=== PATIENT | female | born 1980 | race Caucasian/White ===

== ENCOUNTER 2023-11-06 14:48 | Outpatient (REF) | payer OTHER, SELFPAY ==
[2023-11-06 17:24] LABS: MANUAL DIFF FLAG NO
[2023-11-06 17:37] LABS: Basophils Absolute Auto 0.1 X10*3/uL (0.0-0.2); Basophils Percent Auto 0.9 % (0-2); Eosinophils Absolute Auto 0.3 X10*3/uL (0.0-0.4); Hematocrit 37.8 % (37.0-47.0); Hemoglobin 12.4 g/dl (12.0-16.0); Imm Gran Abs Auto 0.03 X10*3/uL (0.00-0.03); Imm Gran Pct Auto 0.3 % (0.0-0.4); Lymphocytes Absolute Auto 2.5 X10*3/uL (1.2-4.9); Mean Corpuscular HGB Conc 32.8 g/dl (31.0-35.0); Mean Corpuscular Hemoglobin 28.2 pg (27.0-33.0); Mean Corpuscular Volume 86.1 fL (80.0-98.0); Monocytes Absolute Auto 0.7 X10*3/uL (0.1-1.2); Monocytes Percent Auto 8.5 % (2-11); Neutrophils Absolute Auto 5.1 x10*3/uL (2.0-8.3); Neutrophils Percent Auto 58.3 % (45-73); Platelet Count 304 X10*3/uL (160-400); Red Blood Count 4.39 X10*6/uL (4.20-5.50); Red Cell Distribution Width 14.4 % (11.0-16.0); White Blood Count 8.7 X10*3/uL (4.8-10.8)
[2023-11-06 17:50] LABS: Alanine Aminotransferase 18 U/L (0-31); Albumin Level 3.8 g/dL (3.5-5.0); Alkaline Phosphatase 99 U/L (39-117); Anion Gap 11 (12-20); Aspartate Amino Transferase 18 U/L (5-31); Bilirubin Direct 0.1 mg/dL (0.0-0.5); Bilirubin Total 0.5 mg/dL (0.0-1.0); Blood Urea Nitrogen 8 mg/dL (9-16); Calcium 9.2 mg/dL (8.4-10.2); Carbon Dioxide 27 mmol/L (22-29); Chloride 107 mmol/L (96-108); Cholesterol 178 mg/dL (<200); Estimated Glomerular Filt Rate > 60; Glucose Fasting 80 mg/dL (60-99); HDL Cholesterol 30 mg/dL (>40); LDL Cholesterol Calculated 112 mg/dL (<100); Potassium 3.7 mmol/L (3.3-5.1); Sodium 141 mmol/L (135-145); Triglycerides 184 mg/dL (<150)
[2023-11-06 17:56] LABS: Estimated Average Glucose 103 mg/dL; Hemoglobin A1c % 5.2 % (<6.0)
[2023-11-06 18:06] LABS: TSH reflex Free T4 2.45 uIU/mL (0.32-4.0); Vitamin D 25-OH Total 13.9 ng/mL (>30)
== END 2023-11-06 14:49 | disposition home or self-care (01) ==
LOC: HO.CHCLDS 14:48
PROVIDERS: Visit Provider Pediatrics
DX: F41.9 Anxiety disorder, unspecified (principal); E66.01 Morbid (severe) obesity due to excess calories
CPT/HCPCS: 36415; 80048; 80061; 80076; 82306; 83036; 84443; 85025

== ENCOUNTER → 2023-11-19 12:00 | Outpatient (BNV) | payer OTHER, SELFPAY | PROVIDERS: PCP Pediatrics; Visit Provider Radiology Diagnostic Radiology | DX: Z12.31 Encounter for screening mammogram for malignant neoplasm of breast (principal) | CPT/HCPCS: 77063; 77067 ==

== ENCOUNTER 2023-11-19 12:06 | Outpatient (REF) | payer OTHER, SELFPAY ==
--- NOTE | ~2023-11-19 | MM_ITS ---
EXAMINATION: MM SCREENING DIGITAL BREAST TOMOSYNTHESIS, BILATERAL CLINICAL INFORMATION: Screening. Asymptomatic. COMPARISON: Mammography: This is a baseline mammogram. TECHNIQUE: Digital breast tomosynthesis is performed in both the craniocaudal and mediolateral oblique views along with computer-aided detection (CAD). Synthesized 2D images are generated from the tomosynthesis. FINDINGS: The breasts are heterogeneously dense, which may obscure small masses (ACR BI-RADS breast composition Category c). There are no significant masses, abnormal calcifications, or other abnormalities. MM/MM tomosynthesis screening BI IMPRESSION: No mammographic evidence of malignancy. ASSESSMENT: BI-RADS BI-RADS 1 - Negative RECOMMENDATION: Routine annual mammography screening. 1 year F/U This examination should not preclude the clinical evaluation of a suspicious palpable abnormality. This patient's information was entered into a reminder system with a target due date for their next mammogram.
== END 2023-11-19 12:07 | disposition home or self-care (01) ==
LOC: HO.MAMMO 12:06
PROVIDERS: PCP Pediatrics; Visit Provider Pediatrics
DX: Z12.31 Encounter for screening mammogram for malignant neoplasm of breast (principal)
CPT/HCPCS: 77063; 77067

== ENCOUNTER 2023-11-20 13:23 | Outpatient (REF) | payer OTHER, SELFPAY ==
[2023-11-20 16:18] LABS: CT PCR NOT DETECTED (Not Detect.); NG PCR NOT DETECTED (Not Detect.)
[2023-11-21 12:20] LABS: BV Int Neg Control Negative (Negative); BV Int Pos Control Positive (Positive)
== END 2023-11-20 13:24 | disposition home or self-care (01) ==
LOC: HO.CHCLNP 13:23
PROVIDERS: Visit Provider Pediatrics
DX: Z01.419 Encounter for gynecological examination (general) (routine) without abnormal findings (principal); Z11.3 Encounter for screening for infections with a predominantly sexual mode of transmission
CPT/HCPCS: 0353U; 87480; 87510; 87660; 88142

== ENCOUNTER 2025-03-10 09:17 | Outpatient (REF) | payer MEDICAID, SELFPAY ==
--- NOTE | ~2025-03-10 | MM_ITS ---
EXAMINATION: MM SCREENING DIGITAL BREAST TOMOSYNTHESIS, BILATERAL CLINICAL INFORMATION: Screening. Asymptomatic. COMPARISON: November 19, 2023 TECHNIQUE: Digital breast tomosynthesis is performed in both the craniocaudal and mediolateral oblique views along with computer-aided detection (CAD). FINDINGS: BREAST COMPOSITION: The breasts are heterogeneously dense, which may obscure small masses (ACR BI-RADS breast composition Category c). BILATERAL BREASTS: No significant masses, suspicious calcifications or other abnormalities are seen in either breast. MM/MM tomosynthesis screening BI IMPRESSION: BILATERAL BREASTS: Negative, no mammographic evidence of malignancy. Normal interval follow-up is recommended in 12 months. ASSESSMENT: BI-RADS 1 - Negative RECOMMENDATION: Routine annual mammography screening. FOLLOW-UP: 1 year F/U This examination should not preclude the clinical evaluation of a suspicious palpable abnormality. This patient's information was entered into a reminder system with a target due date for their next mammogram. Electronically signed by: Shirley Sy MD 03/19/2025 09:56 PM EDT
--- OUTSIDE RECORDS SUMMARY | 2025-03-10 09:41 | XMS_ITS | Encounter Summary ---
Author Organization [employer] Address [address] [place] [address] [address] [place] [address] Care Team Providers Care Video Production Intern Name Role Phone Ange Shelton MD Primary Care Provider [phone] Reason for Visit * Reason Onset Date Comments Appointment Request 09/01/2023 Encounter Details Date Type Department Care Team (Late Contact Info) Description 09/01/2023 Telephone [facility] PEDS [address] [place], [place] [phone] Ange Shelton MD [address] [place], [place] [phone] Appointment Request Social History Tobacco Use Types Packs/Day Years Used Date Smoking Tobacco: Never Assessed Comments Unknown Sex and Gender Information Value Date Recorded Sex Assigned at Female 06/03/2022 10:14 AM EDT Legal Sex Female 10:14 AM EDT Gender Identity Female 06/03/2022 10:14 AM EDT Sexual Orientation Straight 06/03/2022 10 :14 AM EDT documented as of this encounter Miscellaneous Notes * Telephone Encounter - Sophie Molina - 09/01/2023 3:15 PM EST Tc from pt requesting an PE appt with PCP . Please contact pt @ [phone] documented in this encounter Plan of Treatment Upcoming Encounters Date Type Department Care Team (Late Contact Info) Description 04/14/2025 2:15 PM EDT Office Visit [facility] PEDS [address] [place], [place] [phone] Ange Shelton MD [address] [place] [address] documented as of this encounter Visit Diagnoses Not on filedocumented in this encounter Care Teams Video Production Intern Relationship Specialty Start Date End Date Ange Shelton MD [address] [place] [address] PCP - General Family Medicine 10/07/18 documented as of this encounter
== END 2025-03-10 09:18 | disposition home or self-care (01) ==
LOC: HO.MAMMO 09:17
PROVIDERS: PCP Pediatrics; Visit Provider Pediatrics
DX: Z12.31 Encounter for screening mammogram for malignant neoplasm of breast (principal)
CPT/HCPCS: 77063; 77067

== ENCOUNTER → 2025-03-10 09:30 | Outpatient (BNV) | payer MEDICAID, SELFPAY | PROVIDERS: PCP Pediatrics; Visit Provider Radiology Body Imaging | DX: Z12.31 Encounter for screening mammogram for malignant neoplasm of breast (principal) | CPT/HCPCS: 77063; 77067 ==

== ENCOUNTER 2025-04-22 08:30 | Outpatient (REF) | payer MEDICAID, SELFPAY ==
--- OUTSIDE RECORDS SUMMARY | 2025-04-22 09:05 | XMS_ITS | Encounter Summary ---
Author Organization [employer] Address [address] [facility] 7t [place] [address] Care Team Providers Care Friction Saw Operator Name Role Phone Ange Shelton MD Primary Care Provider [phone] Encounter Details Date Type Department Care Team (Late st Contact Info) Description 12/01/2023 Telephone [facility] [address] [place] [address] Ange Shelton MD [address] [place] [address] Social History Tobacco Use Types Packs/Day Years Used Date Smoking Tobacco: Never Smokeless Tobacco: Never Depression Answer Date Recorded Patient Health Questionnaire-9 Score 19 11/06/2023 Patient Health Questionnaire-9 Score 19 11/06/2023 Last PHQ-9: Questionnaire Data Not on file 0 11/06/2023 Housing Stability Answer Date Recorded What is your housing situation today? I have chucky aparicio 11/06/[address] you li ve. Do you have problems with any of the following? None of the above 11/06/2023 Food Insecurity Answer Date Recorded Within the past 12 months, y ou worried that your food would run out before you got money to buy more: Never True 11/06/2023 Within the past 12 months,th e food you bought just didn't last and you didn't have enough money to get more: Never True 11/2023 Transportation Answer Date Recorded In the past 12 months, has l ack of transportation kept you from medical appts, meetings, work or from getting things needed for daily living? No 11/06/2023 Utilities Answer Date Recorded In the past 12 months, has t he electric, gas, oil or water company threatened to shut off services in your home? No 11/06/2023 Depression Answer Date Recorded Patient Health Questionnaire-2 Score 6 11/06/2023 Comments Unknown Sex and Gender Information Value Date Recorded Sex Assigned at Female 06/03/2022 10:14 AM EDT Legal Sex Female 10:14 AM EDT Gender Identity Female 06/03/2022 10:14 AM EDT Sexual Orientation Straight 06/03/2022 10 :14 AM EDT documented as of this encounter Plan of Treatment Upcoming Encounters Date Type Department Care Team (Late st Contact Info) Description 06/15/2025 9:30 AM EST Office Visit [facility] MED & PEDS [address] [place] [address] Ange Shelton MD [address] [place] [address] documented as of this encounter Visit Diagnoses Not on filedocumented in this encounter Additional Health Concerns Assessment Noted Time PHQ-9 Depression Total Score: 19 024 1:33 PM EDT documented as of this encounter Care Teams Friction Saw Operator Relationship Specialty Start Date End Date Ange Shelton MD [address] [place] [address] PCP - General Family Medicine 10/07/18 documented as of this encounter
--- OUTSIDE RECORDS SUMMARY | 2025-04-22 09:05 | XMS_ITS | Encounter Summary ---
Author Organization [employer] Address [address] [place] [address] 7 [place] [address] Care Team Providers Care Chain Builder Name Role Phone Ange Shelton MD Primary Care Provider [phone] Reason for Visit * Reason Onset Date Comments Appointment Request 09/01/2023 Encounter Details Date Type Department Care Team (Late Contact Info) Description 09/01/2023 Telephone [facility] MED & PEDS [address] [place], [place] [phone] Ange Shelton MD [address] [place], [place] [phone] Appointment Request Social History Tobacco Use Types [...] with PCP . Please contact pt @ [phone] documented in this encounter Plan of Treatment Upcoming Encounters Date Type Department Care Team (Late st Contact Info) Description 06/15/2025 9:30 AM EST Office Visit [facility] MED & PEDS [address] [place], [place] [phone] Ange Shelton MD [address] [place] [address] documented as of this encounter Visit Diagnoses Not on filedocumented in this encounter Care Teams Chain Builder Relationship Specialty Start Date End Date Ange Shelton MD [address] [facility] [place] [address] PCP - General Family Medicine 10/07/18 documented as of this encounter
--- OUTSIDE RECORDS SUMMARY | 2025-04-22 09:06 | XMS_ITS | Clinical Summary ---
Author Organization [employer] Address [address] [facility] 7[address] [place] [address] Care Team Providers Care Snack Stewardess Name Role Phone Ange Shelton MD Primary Care Provider [phone] Allergies No known active allergies Medications * This document contains information received from the source organization and may not represent a complete record from that organization. naproxen (Naprosyn) 500 MG tablet Take 1 tablet by mouth in the morning and 1 tablet in the evening. Active phentermine 8 MG tablet Take 1 tablet (8 mg) by mouth Once per day. 30 tablet 5 Active topiramate (Topamax) 50 MG tablet Take 1 tablet (50 mg) by mouth Once per day. 30 tablet 2 5 Active ergocalciferol (Vitamin D2) 1.25 MG (69966 UT) capsule Take 1 capsule by mouth 1 (one) time per week. 2 04/15/20 25 Discontinu ed(Therapy completed) ergocalciferol (Vitamin D2) 1.25 MG (96524 UT) capsule Take 1 capsule (1.25 mg) by mouth 1 (one) time per week. 15 capsule 4 04/15/20 25 Discontinu ed(Therapy completed) sertraline (Zoloft) 50 MG tablet TAKE 1 TABLET BY MOUTH DAILY 30 tablet 3 4 04/15/20 25 Discontinu ed(Therapy completed) Active Problems Problem Noted Date Diagnosed Date Moderate episode of recurrent major depressive d isorder 11/11/2023 History of cholecystectomy 08/07/2022 Obesity 08/07/2022 Panic disorder 08/07/2022 Premenstrual tension syndrome 08/07/2022 Chronic anxiety 09/10/2018 Encounters * This document contains information received from the source organization and may not represent a complete record from that organization. Date Type Department Care Team Description 04/14/2025 2:15 PM EDT Office Visit [facility] MED & PEDS [address] [place] [address] Ange Shelton MD Chronic anxiety (Primary Dx); Dietary counseling; Exercise counseling; Myopia of both eyes; Routine general medical examination at a health care facility; Class 2 obesity with body mass index (BMI) of 38.0 to 38.9 in adult, unspecified obesity type, unspecified whether serious comorbidity present 04/14/2025 Travel 04/12/2025 Telephone [facility] & PEDS [address] [place] [address] Ange Shelton MD Chart Prep 04/07/2025 Patient Outreach [facility] [address] [place] [address] Ange Shelton MD Pre-visit Planning (Pre visit planning LVM ) 04/06/2025 Population Health Risk Score [facility] () Department [address] [place] [phone] Provider, Population Health Generic 03/10/2025 Orders Only [facility] MED & PEDS [address] [place] [address] Ange Shelton MD from Last 3 Months Immunizations Immunization Administration Dates Next Due Hep B Immune Globulin 04/13/2009,11/07/2008,0311/2008 Hep B, adult 04/13/2009,11/07/2008,10/05/2008 Influenza injectable quadriv alent preservative free 05/30/2023,05/31/2022,06/19/2021,2019 Influenza, IIV3, injectable 04/09/2013, 2,04/25/2011 Influenza, intradermal, quad rivalent, preservative free 04/09/2013,03/09/2012,04/25/2011 Social History Tobacco Use Types Packs/Day Years Used Date Smoking Tobacco: Never Passive Smoke Exposure: Never Smokeless Tobacco: Never Tobacco Cessation:Counseling Given: Not Answered Depression Answer Date Recorded Patient Health Questionnaire-9 Score 7 04/14/2025 Patient Health Questionnaire-9 Score 7 04/14/2025 Last PHQ-9: Questionnaire Data Not on file 0 04/14/2025 Housing Stability Answer Date Recorded What is your housing situation today? I have chucky aparicio 04/14/[address] you li ve. Do you have problems with any of the following? None of the above 04/14/2025 Food Insecurity Answer Date Recorded Within the past 12 months, y ou worried that your food would run out before you got money to buy more: Never True 04/14/2025 Within the past 12 months,th e food you bought just didn't last and you didn't have enough money to get more: Never True 06/2025 Transportation Answer Date Recorded In the past 12 months, has l ack of transportation kept you from medical appts, meetings, work or from getting things needed for daily living? No 04/14/2025 Utilities Answer Date Recorded In the past 12 months, has t he electric, gas, oil or water company threatened to shut off services in your home? No 04/14/2025 Depression Answer Date Recorded Patient Health Questionnaire-2 Score 2 04/14/2025 Internet Access Answer Date Recorded Internet Access Q1 Yes 04/14/2025 Internet Access Q2 Not on file 04/14/2025 Comments Unknown Sex and Gender Information Value Date Recorded Sex Assigned at Female 06/03/2022 10:14 AM EDT Legal Sex Female 10:14 AM EDT Gender Identity Female 06/03/2022 10:14 AM EDT Sexual Orientation Straight 06/03/2022 10 :14 AM EDT Last Filed Vital Signs Vital Sign Reading Time Taken Comments Blood Pressure 120/90 04/14/2025 2:32 PM EDT Pulse 80 04/14/2025 2:32 PM EDT Temperature 36.6 C (97.8 F) 04/14/2025 2:32 PM EDT Respiratory Rate 20 04/14/2025 2:32 PM EDT Oxygen Saturation 97% 11/06/2023 1:30 PM EDT Inhaled Oxygen Concentration - - Weight 103 kg (227 lb) 04/14/2025 2:32 PM EDT Height 163.2 cm (5' 4.25 ) 04/14/2025 2:32 PM ED T Body Mass Index 38.66 04/14/2025 2:32 PM EDT Plan of Treatment Upcoming Encounters Date Type Department Care Team ([facility] st Contact Info) Description 06/15/2025 9:30 AM EST Office Visit [facility] & PEDS [address] [facility] [place] [address] Ange Shelton MD [address] [place] [address] Health Maintenance Due Date Last Done Comments HIV Screening 1980 Family Planning (PISQ) 1996 HPV Vaccines (1 - 3-dose series) 1996 Hepatitis C Screening 1999 DTaP/Tdap/Td Vaccines (1 - Tdap) 2000 COVID-19 Vaccine ( season) 2025 04/25/2021, 04/04/2021 Influenza Vaccine (#1) 2025 , 05/31/2022, 06/19/2021, Additional history exists Alcohol/Substance Use Screening 04/14/2026 04/14/2025 Depression Screening 04/14/2026 04/14/2025, 04/14/20 25 Disability Screening 04/14/2026 04/14/2025 SDOH Screening 04/14/2026 04/14/2025 Tobacco Screening 04/14/2026 04/14/2025 Pap Smear 11/19/2026 11/20/2023, 11/02, 01/29/2017 Mammogram 03/10/2027 03/10/2025, 11/19/2023 Lipid Panel 11/05/2028 11/06/2023, 09/13/2021 Cervical Cancer Screening 11/19/2028 HPV/Cotest 11/19/2028 11/20/2023, 01/29/2017 Zoster Vaccines (1 of 2) 2031 RSV Patients and Patients Aged 60 years or older (1 - 1-dose 75+ series) 2056 Hepatitis B Vaccines Completed 04/13/2009, 11/07/2008, 10/05/2008 HIB Vaccines Aged Out No longer eligi ble based on patient's age to complete this topic Hepatitis A Vaccines Aged Out No long er eligible based on patient's age to complete this topic IPV Vaccines Aged Out No longer eligi ble based on patient's age to complete this topic Meningococcal B Vaccine Aged Out No l onger eligible based on patient's age to complete this topic Meningococcal Vaccine Aged Out No bang shobha eligible based on patient's age to complete this topic Pneumococcal Vaccine: Pediatrics (0 to 5 Years) and At-Risk Patients (6 to 49) Years Aged Out No longer eligible based on patient's age to complete this topic RSV under 20 months Aged Out No longe r eligible based on patient's age to complete this topic Rotavirus Vaccines Aged Out No longer eligible based on patient's age to complete this topic Procedures Procedure Name Priority Date/Time Associated Diagnosis Comments BI MAMMOGRAM SCREENING TOMOSYNTHESIS BILATERAL Routine 03/10/2025 9:25 AM EDT PAP SMEAR Routine 11/20/2023 12:30 PM EDT Combined hyperlipidemia Vitamin D deficiency Encounter for gynecological examination with Papanicolaou smear of cervix HM PAP/HPV Routine 11/20/2023 LIPID PANEL, STANDARD Routine 11/06/2023 3:06 PM EDT Chronic anxiety Class 3 severe obesity due to excess calories in adult, unspecified BMI, unspecified whether serious comorbidity present (CMS/HCC) from Last 3 Months or Most Recently Relevant to Health Maintenance Results * BI Mammogram Screening Tomosynthesis Bilateral (03/10/2025 9:25 AM EDT) Anatomical Region Laterality Modality Breast Bilateral Mammography 03/10/2025 9:25 AM EDT Narrative 03/19/2025 9:59 PM EDT [facility] [address] [place] [address] Mammography Report Signed Patient: Colleen Tatum MR#: [id number] : 1980 Acct:[id number] Age/Sex: 44 / F ADM Date: 03/10/25 Loc: HO.MAMMO Attending Dr: Ange Shelton MD Ordering Physician: Ange Shelton MD Results: 1Ne gative Date of Service: 03/10/25 Follow Up: 1 Year From Orig [facility] Mammogram Procedure(s): MM tomosynthesis screening BI Accession Number(s): [id number] cc: Ange Shelton MD EXAMINATION: MM SCREENING DIGITAL BREAST TOMOSYNTHESIS, BILATERAL CLINICAL INFORMATION: Screening. Asymptomatic. COMPARISON: November 19, 2023 TECHNIQUE: Digital breast tomosynthesis is performed in both the craniocaudal and mediolateral oblique views along with computer-aided detection (CAD). FINDINGS: BREAST COMPOSITION: The breasts are heterogeneously dense, which may obscure small masses (ACR BI-RADS breast composition Category c). BILATERAL BREASTS: No significant masses, suspicious calcifications or other abnormalities are seen in either breast. MM/MM tomosynthesis screening BI IMPRESSION: BILATERAL BREASTS: Negative, no mammographic evidence of malignancy. Normal interval follow-up is recommended in 12 months. ASSESSMENT: BI-RADS 1 - Negative RECOMMENDATION: Routine annual mammography screening. FOLLOW-UP: 1 year F/U This examination should not preclude the clinical evaluation of a suspicious palpable abnormality. This patient's information was entered into a reminder system with a target due date for their next mammogram. Electronically signed by: Shirley Sy MD 03/19/2025 09:56 PM EDT Dictated By: Shirley Sy MD Signed By: <Electronically signed by Shirley Sy MD in OV> 03/19/256 DD/ 4 TD/TT: 03/10/25 09 Music Intern: Procedure Note Donotuseinterpreter, Image - 03/19/2025 [facility] [address] [place] [address] Mammography Report Signed Patient: Colleen Tatum JMR#: [id number] : 1980Acct:[id number] Age/Sex: 44 / FADM Date: 03/10/25 Loc: [facility]MO Attending Dr: Ange Shelton MD Ordering Physician: Ange Shelton MDResults: 1Ne gative Date of Service: 03/10/25Follow Up: 1 Year From [facility] Mammogram Procedure(s): MM tomosynthesis screening BI Accession Number(s): [id number] cc: Ange Shelton MD EXAMINATION: MM SCREENING DIGITAL BREAST TOMOSYNTHESIS, BILATERAL CLINICAL INFORMATION: Screening. Asymptomatic. COMPARISON: November 19, 2023 TECHNIQUE: Digital breast tomosynthesis is performed in both the craniocaudal and mediolateral oblique views along with computer-aided detection (CAD). FINDINGS: BREAST COMPOSITION: The breasts are heterogeneously dense, which may obscure small masses (ACR BI-RADS breast composition Category c). BILATERAL BREASTS: No significant masses, suspicious calcifications or other abnormalities are seen in either breast. MM/MM tomosynthesis screening BI IMPRESSION: BILATERAL BREASTS: Negative, no mammographic evidence of malignancy. Normal interval follow-up is recommended in 12 months. ASSESSMENT: BI-RADS 1 - Negative RECOMMENDATION: Routine annual mammography screening. FOLLOW-UP: 1 year F/U This examination should not preclude the clinical evaluation of a suspicious palpable abnormality. This patient's information was entered into a reminder system with a target due date for their next mammogram. Electronically signed by: Shirley yS MD 03/19/2025 09:56 PM EDT Dictated By: Shirley Sy MD Signed By: <Electronically signed by Shirley Sy MD in OV> 03/19/25 2156 DD/ 0925 TD/TT: 03/10/25 0940 Music Intern: us Ange Shelton MD IMG BI PROCEDURES Final Resul t * Pap Smear (11/20/2023 12:30 PM EDT) Swab 11/20/2023 12:3 0 PM EDT 11/24/2023 11:30 AM EDT [facility] - 12/09/2023 12:30 PM EDT ----- ------- Name: Colleen Tatum Age/Sex: 43/F : 1980 Unit#: [id number] Attend Dr: Ange Shelton MD Re11/20/23 Status: DEP REF Location: HO.CHCLNP Disch: ----- ------- SPEC : [id number] RECD: 11/24/23-113 STATUS: ESTELLE PISANO NUM: [id number] ALICIA: 11/20/23-[address] [facility] [address]: Ange Shelton MD ENTERED: 11/24/23-1410 SP TYPE: Pap Smr OT DR: ORDERED: Pap Smear Interpretation Satisfactory for evaluation. Negative for intraepithelial lesion or malignancy. Clinical Information LMP: Unknown date Previous PAP test: 2016, WN Material Received ThinPrep-Cervical ----- ------- Signed (signature on file) ARVIND Irizarry (ASCP) 12/09/23 1230 ----- ------- END OF REPORT Ange Shelton MD LAB CYTOLOGY ORDERABLES Final Result [facility] [address] [place] [address] [phone] * HM PAP/HPV (11/20/2023) Pap Smear 1. NILM 1. NILM HPV Undetected Undetected, Indeterminate , Quantitative, Not Detected Ange Shelton MD HEALTH MAINTENANCE Final Resu lt * (ABNORMAL) Lipid Panel, Standard (11/06/2023 3:06 PM EDT) Triglycerides 184(H) <150 mg/dL [facility] Comment:Desirable Triglyceri de: less than 150 mg/dLBorderline High Triglyceride 150-199 mg/dLHigh Triglyceride: 200-499 mg/dLVery High Triglyceride: greater than or equal to 5OO mg/dL Cholesterol 178 <200 mg/dL [facility] Comment:Desirable Cholestero l: less than 200 mg/dLBorderline High Cholesterol: 200-239 mg/dLHigh Cholesterol: greater than 239 mg/dL LDL Cholesterol Calculated 112(H) <100 mg/dL [facility] Comment:Desirable LDL: less than 100 mg/dLNear Optimal/Above Optimal LDL: 110- 129 mg/dLBorderline High LDL: 130-159 mg/dLHigh LDL: 160-189 mg/dLVery High LDL: greater than or equal to 190 mg/dL HDL Cholesterol 30(L) >40 mg/dL [facility] Comment:Desirable HDL: great er than 40 mg/dL Note: This HDL assay may give artificially low results in patients with liver disease. Blood Venous blood specimen / Unknown 11/06/2023 3:06 PM EDT 11/06/2023 5:19 PM EDT Ange Shelton MD LAB BLOOD ORDERABLES Final Re sult [facility] [address] [place] [address] [phone] from Last 3 Months or Most Recently Relevant to Health Maintenance Insurance [employer] Care Teams Snack Stewardess Relationship Specialty Start Date End Date Ange Shelton MD [address] [place] [address] PCP - General Family Medicine 10/07/18
--- OUTSIDE RECORDS SUMMARY | 2025-04-22 09:06 | XMS_ITS | Encounter Summary ---
Author Organization [employer] Address [address] [facility] 7t [place] [address] Care Team Providers Care Records Management Coordinator Name Role Phone Ange Shelton MD Primary Care Provider [phone] Reason for Visit * Reason Comments Med Refill Encounter Details Date Type Department Care Team ([facility] st Contact Info) Description 03/25/2024 Refill [facility] [address] [place], [place] [phone] Ange Shelton MD [address] [place] [address] Social History Tobacco Use Types Packs/Day Years [...] Upcoming Encounters Date Type Department Care Team ([facility] st Contact Info) Description 06/15/2025 9:30 AM EST Office Visit [facility] MED & PEDS [address] [place] [address] Ange Shelton MD [address] [place] [address] documented as of this encounter Visit Diagnoses Not on filedocumented in this encounter Additional Health Concerns Assessment Noted Time PHQ-9 Depression Total Score: 19 024 1:33 PM EDT documented as of this encounter Care Teams Records Management Coordinator Relationship Specialty Start Date End Date Ange Shelton MD [address] [place] [address] PCP - General Family Medicine 10/07/18 documented as of this encounter
--- OUTSIDE RECORDS SUMMARY | 2025-04-22 09:06 | XMS_ITS | Encounter Summary ---
Author Organization [employer] Address [address] [place] [address] Care Team Providers Care Senior Account Representative Name Role Phone Ange Shelton MD Primary Care Provider [phone] Reason for Visit * Reason Comments Med Refill Encounter Details Date Type Department Care Team ([facility] st Contact Info) Description 03/24/2024 Refill [facility] [address], [place] [id number] Ange Shelton MD [address] [place] [address] Social History Tobacco Use Types Packs/Day Years [...] Upcoming Encounters Date Type Department Care Team ([facility] st Contact Info) Description 06/15/2025 9:30 AM EST Office Visit [facility] [address] [place] [address] Ange Shelton MD [address] [place] [address] documented as of this encounter Visit Diagnoses Not on filedocumented in this encounter Additional Health Concerns Assessment Noted Time PHQ-9 Depression Total Score: 19 024 1:33 PM EDT documented as of this encounter Care Teams Senior Account Representative Relationship Specialty Start Date End Date Ange Shelton MD [address] [place] [address] PCP - General Family Medicine 10/07/18 documented as of this encounter
[2025-04-22 14:36] LABS: MANUAL DIFF FLAG NO
[2025-04-22 14:49] LABS: Hematocrit 37.4 % (37.0-47.0); Hemoglobin 12.5 g/dl (12.0-16.0); Imm Gran Abs Auto 0.03 X10*3/uL (0.00-0.03); Imm Gran Pct Auto 0.3 % (0.0-0.4); Lymphocytes Absolute Auto 2.5 X10*3/uL (1.2-4.9); Mean Corpuscular HGB Conc 33.4 g/dl (31.0-35.0); Mean Corpuscular Hemoglobin 28.1 pg (27.0-33.0); Mean Corpuscular Volume 84.0 fL (80.0-98.0); NRBC Abs Auto 0.000 X10*3/uL (0.0-0.012); NRBC Pct Auto 0.0 /100WBC (0.0-0.2); Platelet Count 316 X10*3/uL (160-400); Red Blood Count 4.45 X10*6/uL (4.20-5.50); White Blood Count 9.4 X10*3/uL (4.8-10.8)
[2025-04-22 15:00] LABS: Hemoglobin A1C 121.1975 umol/L; Total Hemoglobin (HGBA1C) 3250.2639 umol/L
[2025-04-22 15:02] LABS: Alanine Aminotransferase 18 U/L (0-31); Albumin Level 4.0 g/dL (3.5-5.0); Alkaline Phosphatase 99 U/L (39-117); Anion Gap 10 (12-20); Aspartate Amino Transferase 25 U/L (5-31); Blood Urea Nitrogen 12 mg/dL (9-16); Calcium 8.8 mg/dL (8.4-10.2); Carbon Dioxide 27 mmol/L (22-29); Chloride 108 mmol/L (96-108); Cholesterol 162 mg/dL (<200); Estimated Glomerular Filt Rate > 60; HDL Cholesterol 30 mg/dL (>40); Potassium 3.5 mmol/L (3.3-5.1); Sodium 141 mmol/L (135-145); Total Protein 6.8 g/dL (6.5-8.0); Triglycerides 167 mg/dL (<150)
[2025-04-22 15:45] LABS: Folate 5.2 ng/mL (> or = 4.0); Vitamin B12 280 pg/mL (200-900)
[2025-04-22 16:05] LABS: Free T4 (Free Thyroxine) 0.96 ng/dL (0.71-1.85)
[2025-04-22 21:56] LABS: CT PCR Urine NOT DETECTED (Not Detect.); NG PCR Urine NOT DETECTED (Not Detect.)
[2025-04-23 08:44] LABS: Syphilis Screen Nonreactive (Nonreactive)
[2025-04-23 08:50] LABS: HBS Num1 149.46 mIU/mL (0-7.99); HIV Num 1 0.06 S/CO (0.00-0.99); ~HepC Num1 0.15 S/CO (0.00-0.79); ~Hepatitis B Surface Antibody REACTIVE (Nonreactive); ~Hepatitis C Antibody Nonreactive (Nonreactive)
== END 2025-04-22 08:31 | disposition home or self-care (01) ==
LOC: HO.CHCLDS 08:30
PROVIDERS: Visit Provider Pediatrics
DX: Z00.00 Encounter for general adult medical examination without abnormal findings (principal); Z71.3 Dietary counseling and surveillance; Z71.82 Exercise counseling; F41.9 Anxiety disorder, unspecified; H52.13 Myopia, bilateral; Z11.59 Encounter for screening for other viral diseases; Z11.4 Encounter for screening for human immunodeficiency virus [HIV]; Z11.3 Encounter for screening for infections with a predominantly sexual mode of transmission; Z11.8 Encounter for screening for other infectious and parasitic diseases
CPT/HCPCS: 36415; 80048; 80061; 80076; 82306; 82607; 82746; 83036; 84439; 84443; 85025; 86706; 86780; 86803; 87389; 87491; 87591